=== PATIENT | male | born 1985 | race Caucasian/White ===

== ENCOUNTER 2020-01-05 14:34 | Outpatient (REF) | payer OTHER, SELFPAY | END 2020-01-05 14:35 | disposition home or self-care (01) | LOC: HO.LNP 14:34 | PROVIDERS: Visit Provider Hospitalist | DX: Z20.828 Contact with and (suspected) exposure to other viral communicable diseases (principal) | CPT/HCPCS: 87635 ==

== ENCOUNTER 2020-02-22 13:50 | Outpatient (REF) | payer OTHER, SELFPAY ==
[2020-02-22 17:11] LABS: Anion Gap 12 (12-20); Blood Urea Nitrogen 18 mg/dL (9-16); Calcium 9.3 mg/dL (8.4-10.2); Carbon Dioxide 25 mmol/L (22-29); Chloride 103 mmol/L (96-108); Cholesterol 138 mg/dL; Estimated Glomerular Filt Rate > 60; Glucose Fasting 84 mg/dL (60-99); HDL Cholesterol 32 mg/dL; LDL Cholesterol Calculated 84 mg/dl; Potassium 4.4 mmol/l (3.3-5.1); Sodium 136 mmol/L (135-145); Triglycerides 114 mg/dL
== END 2020-02-22 13:51 | disposition home or self-care (01) ==
LOC: HO.HMGCLDS 13:50
PROVIDERS: PCP Internal Medicine; Visit Provider Internal Medicine
DX: Z00.00 Encounter for general adult medical examination without abnormal findings (principal); I10 Essential (primary) hypertension
CPT/HCPCS: 80048; 80061

== ENCOUNTER 2020-04-13 17:01 | Outpatient (REF) | payer OTHER, SELFPAY | END 2020-04-13 17:02 | disposition home or self-care (01) | LOC: HO.LNP 17:01 | PROVIDERS: Hospitalist; Visit Provider Internal Medicine | DX: Z20.822 Contact with and (suspected) exposure to COVID-19 (principal) | CPT/HCPCS: U0003 ==

== ENCOUNTER 2020-05-15 09:43 | Emergency (ER) | payer OTHER, SELFPAY ==
[2020-05-15 11:52] VITALS: BP 119/72; PULSE 50; RESP 18; TEMP 36.8; O2SAT 100; BMI 30.7
--- NOTE | 2020-05-15 12:08 | ED.URI ---
HPI - URI/Sore Throat General Chief Complaint: General Medical Stated Complaint: sore throat Time Seen by Provider: 05/15/20 12:01 Source: patient Mode of arrival: ambulatory Limitations: no limitations History of Present Illness MD elicited complaint: cough and sore throat Pertinent past history: asthma Onset (ago): day(s) (1) Consistency: constant Severity: mild Description of mucous: clear Able to tolerate fluids by mouth: Yes Exacerbating factors: swallowing Relieving factors: nothing Context: sick contacts Associated symptoms: chills and myalgias Treatments prior to arrival: none Related Data Previous Rx's Medication Instructions Recorded omeprazole 20 mg capsule,delayed 20 mg PO DAILY #30 cap 03/25/20 release azithromycin 250 mg tablet 250 mg PO DAILY 5 Days #6 tab 04/13/20 albuterol sulfate 2 puff INHALATION QID PRN #6.7 g 05/15/20 Allergies Allergy/AdvReac Type Severity Reaction Status Date / Time No Known Allergies Allergy Verified 01/30/20 13:40 Review of Systems Review of Systems: Constitutional : No Weight loss, No Fever, pos Chills, No Fatigue, pos Malaise ENT/Mouth : pos sore throat, No Rhinorrhea Eyes: No Eye Pain, No Swelling, No Redness Cardiovascular : No Chest Pain, No SOB, No Dyspnea on Exertion, No Orthopnea, No Edema, No Palpitations Respiratory : No Cough, No Sputum, No Wheezing Gastrointestinal : No Nausea, No Vomiting, No Diarrhea, No Constipation, No abdominal Pain, No Hematochezia, No Melena Genitourinary : No Dysuria, No Urinary Frequency, No Hematuria, Musculoskeletal : No joint pain, pos Myalgias, No Joint Swelling Skin : No Skin Lesions, No rash PMFSH Past Medical History Attestation statement: The following information was validated with the patient. Medical History Cigarette smoker one half pack a day or less Heartburn Myopia Surgical History H/O left knee surgery History of appendectomy Family History Family History (Updated 01/30/20 @ 13:31 by Elva Vicente CMA) Father Diabetes mellitus Hypertension Heart enlargement Mother Diabetes mellitus Hypertension Social History Social History Alcohol intake: never Smoking Status: Current every day smoker Cigarettes Per Day: 10 Use of substances other than those prescribed or required for medical reasons: No Advance Directives: No Advance Directives Information Provided: No Physical Exam Vital Signs: Vital Signs: Last Vital Signs Temp 98.3 F 05/15/20 11:52 Pulse 50 05/15/20 11:52 Resp 18 05/15/20 11:52 BP 119/72 05/15/20 11:52 Pulse Ox 100 05/15/20 11:52 Body Mass Index 30.7 Appearance: Alert. Oriented X3. No acute distress. Eyes: Pupils equal, round and reactive to light. ENT: Pharynx mild erythema no exudates no swelling Neck: Normal inspection. Neck supple. CVS: Normal heart rate and rhythm. Pulses normal. Respiratory: No respiratory distress. Breath sounds normal. Abdomen: Soft and nontender. Skin: Skin warm and dry. Normal skin color. Normal skin turgor. Extremities: No lower extremity edema. No calf ttp Neuro: Oriented X 3. No motor deficit. No sensory deficit. Course Course Course Narrative: results negative called patient MDM - URI/Sore Throat MDM Narrative Medical decision making narrative: 25 yo male with asthma here with clear lungs - no hypoxia c/o URI symptoms will obtain COVID swab and rapid strep significant other is here with similar symptoms, given precautions to return Lab Data Labs: Lab Results 05/15/20 Range/Units 12:46 Coronavirus (PCR) NEGATIVE (Negative) Influenza Type A (PCR) NEGATIVE (Negative) Influenza Type B (PCR) NEGATIVE (Negative) RSV RNA Qual (PCR) NEGATIVE (Negative) Discharge Plan Discharge Clinical Impression: Acute upper respiratory infection Patient Disposition: Home, Self-Care Instructions: Upper Respiratory Infection (ED) Additional Instructions: return to ED for any worsening symptoms or concerns I WILL CALL YOU WITH RESULTS AT HOME KEEP YOUR PHONE ON IF YOU BECOME SO SHORT OF BREATH YOU CANNOT WALK TO THE BATHROOM PLEASE RETURN Prescriptions: New albuterol sulfate 90 mcg/actuation HFA aerosol inhaler 2 puff inhalation QID PRN (Reason: shortness of breath or wheezing) Qty: 6.7 RF: 0 No Action omeprazole 20 mg capsule,delayed release(DR/EC) 20 mg PO DAILY Qty: 30 RF: 1 azithromycin [Zithromax] 250 mg tablet 250 mg PO DAILY 5 Days Qty: 6 RF: 0 Stand Alone Forms: Work/School Release Interventions: ED Discharge Assessment Last Done: 05/15/20 12:47 Discharge Date/Time: 05/15/20 12:55
[2020-05-15 14:23] LABS: Influenza A PCR NEGATIVE (Negative); Influenza B PCR NEGATIVE (Negative); Resp Syncy Virus RNA Qual PCR NEGATIVE (Negative); SARS COV2 PCR INHOUSE NEGATIVE (Negative)
== END 2020-05-15 12:55 | disposition home or self-care (01) ==
PROVIDERS: Emergency Provider Emergency Medicine; PCP Internal Medicine
DX: J06.9 Acute upper respiratory infection, unspecified (principal); J02.9 Acute pharyngitis, unspecified; R05 Cough; Z20.822 Contact with and (suspected) exposure to COVID-19; J45.909 Unspecified asthma, uncomplicated; F17.210 Nicotine dependence, cigarettes, uncomplicated; Z79.899 Other long term (current) drug therapy
CPT/HCPCS: 0241U; 36415; 87071; 87880; 99283

== ENCOUNTER 2020-05-17 06:47 | Emergency (ER) | payer OTHER, SELFPAY ==
--- NOTE | ~2020-05-17 | XR_ITS ---
EXAMINATION: XR CHEST CLINICAL INFORMATION: Dyspnea COMPARISON: None TECHNIQUE: AP portable view of the chest was obtained. FINDINGS: No significant abnormality is noted involving the heart, lungs, mediastinum, bony thorax or soft tissues. XR/XR chest 1V IMPRESSION: No acute disease.
[2020-05-17 07:03] VITALS: BP 171/80; PULSE 88; RESP 16; TEMP 36.8; O2SAT 99; BMI 30.7
--- NOTE | 2020-05-17 07:11 | ED_ITS ---
HPI - URI/Sore Throat General Chief Complaint: General Medical Stated Complaint: COVID SYMPTOMS Time Seen by Provider: 05/17/20 07:07 Source: patient and old records reviewed Mode of arrival: ambulatory Limitations: no limitations History of Present Illness HPI Narrative: 25 yo male with asthma just seen 2 days ago had negative strep and COVID at that time comes back with URI symptoms MD elicited complaint: cough, sore throat and rhinorrhea Pertinent past history: asthma Onset (ago): day(s) (4) Consistency: constant Severity: moderate Description of mucous: clear Able to tolerate fluids by mouth: Yes Exacerbating factors: nothing Relieving factors: nothing Context: sick contacts Associated symptoms: chills, headache, rhinorrhea, sore throat and cough Treatments prior to arrival: none Related Data Previous Rx's Medication Instructions Recorded omeprazole 20 mg capsule,delayed 20 mg PO DAILY #30 cap 03/25/20 release azithromycin 250 mg tablet 250 mg PO DAILY 5 Days #6 tab 04/13/20 albuterol sulfate 2 puff INHALATION QID PRN #6.7 g 05/15/20 Allergies Allergy/AdvReac Type Severity Reaction Status Date / Time No Known Allergies Allergy Verified 01/30/20 13:40 Review of Systems Review of Systems: Constitutional : no Fever, positive Chills, positive fatigue, positive Malaise ENT/Mouth : positive sore throat, positive runny nose Eyes: No Discharge Cardiovascular : No Chest Pain, No SOB Respiratory : pos Cough, No Sputum Gastrointestinal : No Nausea, No Vomiting, No Diarrhea Genitourinary : No Dysuria, No Urinary Frequency Musculoskeletal : positive Myalgia Skin : No rash Neuro : pos Headache PMFSH Past Medical History Attestation statement: The following information was validated with the patient. Medical History Cigarette smoker one half pack a day or less Heartburn Myopia Surgical History H/O left knee surgery History of appendectomy Family History Family History (Updated 01/30/20 @ 13:31 by Elva Vicente CMA) Father Diabetes mellitus Hypertension Heart enlargement Mother Diabetes mellitus Hypertension Social History Social History Alcohol intake: never Smoking Status: Current some day smoker Cigarettes Per Day: 10 Use of substances other than those prescribed or required for medical reasons: No Advance Directives: Yes Advance Directives Information Provided: No Advance Directives on File: No Physical Exam 2 Vital Signs: Vital Signs: Last Vital Signs Temp 98.2 F 05/17/20 07:03 Pulse 88 05/17/20 07:03 Resp 16 05/17/20 07:03 BP 171/80 H 05/17/20 07:03 Pulse Ox 99 05/17/20 07:03 Body Mass Index 30.7 Appearance: Alert. Oriented X3. No acute distress. Eyes: Pupils equal, round and reactive to light. ENT: Pharynx normal. Neck: Normal inspection. Neck supple. CVS: Normal heart rate and rhythm. Pulses normal. Respiratory: No respiratory distress. Breath sounds normal. Abdomen: Soft and nontender. Skin: Skin warm and dry. Normal skin color. Normal skin turgor. Extremities: No lower extremity edema. No calf ttp Neuro: Oriented X 3. No motor deficit. No sensory deficit. Course Course Course Narrative: . MDM - URI/Sore Throat MDM Narrative Medical decision making narrative: 25 yo male not toxic, here with URI symptoms just tested negative for COVID 2 days ago - will repeat COVID test, clear lungs no hypoxia CXR ordered. Lab Data Labs: Lab Results 05/17/20 Range/Units 07:23 Coronavirus (PCR) NEGATIVE (Negative) Influenza Type A (PCR) NEGATIVE (Negative) Influenza Type B (PCR) NEGATIVE (Negative) RSV RNA Qual (PCR) NEGATIVE (Negative) Discharge Plan Discharge Clinical Impression: Upper respiratory tract infection Qualifiers: URI type: unspecified URI Qualified Code(s): J06.9 - Acute upper respiratory infection, unspecified Patient Disposition: Home, Self-Care Instructions: Viral Syndrome (ED) Additional Instructions: return to ED for any worsening symptoms or concerns your chest xray and COVID swab were negative you should still remain out of work if you are symptomatic Prescriptions: No Action omeprazole 20 mg capsule,delayed release(DR/EC) 20 mg PO DAILY Qty: 30 RF: 1 albuterol sulfate 90 mcg/actuation HFA aerosol inhaler 2 puff inhalation QID PRN (Reason: shortness of breath or wheezing) Qty: 6.7 RF: 0 azithromycin [Zithromax] 250 mg tablet 250 mg PO DAILY 5 Days Qty: 6 RF: 0 Print Language: Slovenian
[2020-05-17 08:12] LABS: Influenza A PCR NEGATIVE (Negative); Influenza B PCR NEGATIVE (Negative); Resp Syncy Virus RNA Qual PCR NEGATIVE (Negative); SARS COV2 PCR INHOUSE NEGATIVE (Negative)
[2020-05-17 08:58] VITALS: BP 132/73; PULSE 62; RESP 16; O2SAT 100
== END 2020-05-17 09:01 | disposition home or self-care (01) ==
PROVIDERS: Emergency Provider Emergency Medicine; PCP Internal Medicine
DX: J06.9 Acute upper respiratory infection, unspecified (principal); Z20.822 Contact with and (suspected) exposure to COVID-19; J02.9 Acute pharyngitis, unspecified; F17.210 Nicotine dependence, cigarettes, uncomplicated
CPT/HCPCS: 0241U; 36415; 71045; 99283; 99284

== ENCOUNTER 2020-05-21 06:48 | Emergency (ER) | payer OTHER, SELFPAY ==
[2020-05-21 08:23] VITALS: BP 125/71; PULSE 56; RESP 18; TEMP 36.4; O2SAT 98; BMI 30.7
--- NOTE | 2020-05-21 08:46 | ED.ASTHMA ---
HPI - Asthma General Chief Complaint: Asthma Stated Complaint: Asthma Time Seen by Provider: 05/21/20 08:00 Source: patient Mode of arrival: ambulatory Limitations: no limitations History of Present Illness HPI Narrative: 25-year-old male with a past medical history of asthma here with complaints of cough and shortness of breath since last evening. The patient tells me that he was seen here on May 15 and May 17 for similar symptoms and had 2 COVID test which were negative. He also had a chest x-ray which is unremarkable. He was provided with an albuterol inhaler to use every 4-6 hours as needed for cough or wheezing. Patient although he was doing well till last night when he had increased cough and some shortness of breath unrelieved with home albuterol. This morning he tells me that his breathing feels improved he still does have a dry occasional cough. No fevers, chills, chest pain, leg swelling or pain. The patient tells me he also has had increased anxiety and stress at work and in his home life. Denies suicidal or homicidal ideations. No depression. He is taking [id number] Benadryl to help with his anxiety. complaint: asthma attack Related Data Previous Rx's Medication Instructions Recorded omeprazole 20 mg capsule,delayed 20 mg PO DAILY #30 cap 03/25/20 release azithromycin 250 mg tablet 250 mg PO DAILY 5 Days #6 tab 04/13/20 albuterol sulfate 2 puff INHALATION QID PRN #6.7 g 05/15/20 prednisone 40 mg PO DAILY #10 tab 05/21/20 Allergies Allergy/AdvReac Type Severity Reaction Status Date / Time No Known Allergies Allergy Verified 01/30/20 13:40 Review of Systems Review of Systems: Yes all other systems are reviewed and are negative Constitutional: Constitutional: Reports no additional constitutional complaints, Denies body ache(s), Denies chills, Denies fever(s), Denies headache(s) and Denies weakness Eyes: Eyes: Reports no additional eye complaints and Denies change in vision ENT: Reports system reviewed and no additional complaints, except as documented, Denies dizziness, Denies headache(s), Denies nasal congestion, Denies nasal discharge and Denies neck pain Cardiovascular: Cardiovascular: Reports no additional cardiovascular complaints, Denies chest pain, Denies leg edema and Reports dyspnea Respiratory: Respiratory: Reports no additional respiratory complaints, Reports cough and Reports dyspnea Gastrointestinal: Gastrointestinal: Reports no additional gastrointestinal complaints, Denies abdominal pain, Denies diarrhea, Denies nausea and Denies vomiting Genitourinary: Genitourinary: Denies urinary incontinence Musculoskeletal: Musculoskeletal: Reports no additional musculoskeletal complaints, Denies back pain, Denies arthralgias, Denies joint swelling, Denies neck pain, Denies numbness and Denies tingling Integumentary/Breasts: Skin/Breast: Reports system reviewed and no additional complaints, except as docu and Denies rash Neurologic: Reports system reviewed and no additional complaints, except as documented, Denies Abnormal speech present, Denies dizziness, Denies headache(s), Denies numbness, Denies tingling and Denies weakness Psychiatric: Psychiatric: Reports anxiety, Denies depression, Denies homicidal ideation and Denies suicidal ideation [facility] Past Medical History Attestation statement: The following information was validated with the patient. Source: old records reviewed and nursing notes reviewed Medical History Cigarette smoker one half pack a day or less Heartburn Myopia Surgical History H/O left knee surgery History of appendectomy Family History Family History Father Diabetes mellitus Hypertension Heart enlargement Mother Diabetes mellitus Hypertension Social History Social History Alcohol intake: never Smoking Status: Current some day smoker Cigarettes Per Day: 10 Advance Directives: No Advance Directives Information Provided: No Physical Exam Vital Signs: Vital Signs: Last Vital Signs Temp 97.6 F 05/21/20 08:23 Pulse 56 05/21/20 08:23 Resp 18 05/21/20 08:23 BP 125/71 05/21/20 08:23 Pulse Ox 98 05/21/20 08:23 Body Mass Index 30.7 Const: General: cooperative, healthy appearing, comfortable and no acute distress Orientation/consciousness: patient oriented x3 Limitations: no limitations HENMT: Head: Yes normal to inspection Ears: hearing grossly normal bilaterally General nose exam: Normal external nose present Face and sinus: Yes normal facial exam Mouth: Normal oral and palatal mucosa present Throat: Yes posterior oropharynx normal Eyes: General: appearance normal, both eyes and all related structures Pupils: Equal, round and reactive pupils present Neck: Neck: Yes normal visual inspection Chest: Chest palpation & inspection: normal inspection of the chest Resp: Other: mild expiratory wheezing bases. clear upper airways Effort & Inspection: normal respiratory effort Cardio: Rate: regular rate Rhythm: regular rhythm Peripheral pulses: Peripheral pulses 2+ throughout GI: Inspection: Yes normal to inspection Palpation (GI): Soft to palpation and nontender Auscultation: normal bowel sounds Back/Spine/Pelvis: Thoracic/Lumbar Spine: thoracic and lumbar spine normal to inspection Skin: General skin exam: no rashes or lesions noted Neuro: General: patient oriented x3, no focal motor deficits and normal sensation to monofilament Cranial nerves: Yes Equal, round and reactive pupils present Cognition (Neuro): normal cognition Speech: No Abnormal speech present Gait exam (Neuro): Normal gait present Motor exam (neuro): 5/5 motor strength present throughout Extrem: General: Yes normal to inspection, Yes no pedal edema and Yes no calf tenderness Course Course Course Narrative: 25-year-old male with past medical history of asthma here with complaints of shortness of breath and cough since last evening. Unrelieved with home albuterol. On arrival the patient is well appearing, speaking full sentences, lying back resting comfortably. His lungs have a mild expiratory wheezing in the bases with clear in the upper airways. Normal saturations. Does not want additional COVID testing. No need for repeat CXR with no fever, normal saturations and lung sounds only show some exp wheezing which is very mild. He has a flat affect and does tell me he has increased anxiety at home and at work with stress. No depression or SI. I wonder if this is contributing to his symptoms at this time and we discussed this. Plan for brief course of steroids. We also discussed that he follow-up with his primary care doctor for additional management of his asthma as we do not do this from the emergency department. Reviewed worrisome signs/symptoms with patient and when to return to the ED. Comfortable with discharge home. [facility] - Asthma Medical Records Attestation: I reviewed the patient's medical records. Lab Data Attestation: I reviewed the patient's lab results. Discharge Plan Discharge Clinical Impression: Asthma with acute exacerbation Patient Disposition: Home, Self-Care Instructions: Asthma (ED) Additional Instructions: If you feel your asthma symptoms are not well controlled with your albuterol inhaler than you need to follow-up with your primary care doctor to be on a daily controller medication. You should also discuss your anxiety with them. This may be contributing to your symptoms Prescriptions: New prednisone 20 mg tablet 40 mg PO DAILY Qty: 10 RF: 0 No Action omeprazole 20 mg capsule,delayed release(DR/EC) 20 mg PO DAILY Qty: 30 RF: 1 albuterol sulfate 90 mcg/actuation HFA aerosol inhaler 2 puff inhalation QID PRN (Reason: shortness of breath or wheezing) Qty: 6.7 RF: 0 azithromycin [Zithromax] 250 mg tablet 250 mg PO DAILY 5 Days Qty: 6 RF: 0 Referrals: Ivy Vergara MD [Primary Care Provider] - 2 days Stand Alone Forms: Work/School Release Interventions: ED Discharge Assessment Last Done: 05/21/20 09:04 Discharge Date/Time: 05/21/20 09:07
== END 2020-05-21 09:07 | disposition home or self-care (01) ==
PROVIDERS: Emergency Provider Emergency Medicine; PCP Internal Medicine
DX: J45.901 Unspecified asthma with (acute) exacerbation (principal); F17.210 Nicotine dependence, cigarettes, uncomplicated; F41.9 Anxiety disorder, unspecified; Z79.899 Other long term (current) drug therapy
CPT/HCPCS: 99283

== ENCOUNTER 2020-10-07 19:01 | Emergency (ER) | payer OTHER, SELFPAY ==
--- NOTE | ~2020-10-07 | XR_ITS ---
EXAMINATION: XR CHEST CLINICAL INFORMATION: Shortness of breath COMPARISON: 05/17/2020 TECHNIQUE: 2 views of the chest were obtained. FINDINGS: No significant abnormality is noted involving the heart, lungs, mediastinum, bony thorax or soft tissues. XR/XR chest 2V IMPRESSION: Unremarkable examination.
[2020-10-07 19:06] VITALS: BP 116/88; PULSE 98; RESP 18; TEMP 37.1; O2SAT 97; BMI 30.7
--- NOTE | 2020-10-07 20:02 | ED.SOB ---
HPI - SOB/Dyspnea General Chief Complaint: Dyspnea Stated Complaint: Cough/Sob Time Seen by Provider: 10/07/20 19:41 Source: patient Mode of arrival: ambulatory Limitations: no limitations History of Present Illness HPI Narrative: 25 y/o male with history of asthma presenting with SOB and wheezing for the last 5 days. He reports generally not feeling well. He presents with his girlfriend who is also feeling unwell. He used his PRN albuterol inhaler when he started feeling sick but has not been using is consistently. He denies fever, chills, productive cough, N/V/D or abdominal pain. No chest pain. No known exposure to COVID. MD elicited complaint: shortness of breath and asthma attack Pertinent past history: asthma Onset (ago): day(s) (5) Timing: intermittent Severity: moderate Exacerbating factors: exertion and coughing Relieving factors: rest and bronchodilators Known history of: asthma Associated symptoms: cough and wheezing Treatment prior to arrival: none Related Data Home oxygen amount: none Previous Rx's Medication Instructions Recorded montelukast 10 mg tablet 10 mg PO QPM #30 tab 07/03/20 nicotine (polacrilex) 4 mg gum 4 mg BUCCAL Q2H #40 ea 07/20/20 omeprazole 20 mg capsule,delayed 20 mg PO DAILY #30 cap 09/19/20 release albuterol sulfate 1 inh INHALATION QID PRN #6.7 g 10/07/20 albuterol sulfate 90 mcg/actuation 2 puff INHALATION QID PRN #8.5 g 10/07/20 aerosol inhaler azithromycin [Zithromax Z-Christophe] See Rx Instructions .ROUTE 10/07/20 .COMPLEX #6 tab prednisone 40 mg PO DAILY 5 Days #10 tab 10/07/20 Allergies Allergy/AdvReac Type Severity Reaction Status Date / Time No Known Allergies Allergy Verified 06/14/20 14:31 Review of Systems Review of Systems: Constitutional: No Fever, No Chills ENT/Mouth: + sore throat, No Rhinorrhea, No Swallowing Difficulty Eyes: No Eye Pain, No Swelling, No Redness Cardiovascular: No Chest Pain, No SOB, No Orthopnea, No Edema Respiratory: + Cough, No Sputum, + Wheezing, No dyspnea Gastrointestinal: No Nausea, No Vomiting, No Diarrhea, No abdominal Pain Musculoskeletal: No joint pain, No Myalgias Skin: No Skin Lesions, No rash Neuro: No Dizziness, + Headache Heme/Lymph: No Bruising, No Lymphadenopathy PMFSH Past Medical History Attestation statement: The following information was validated with the patient. Medical History Cigarette smoker motivated to quit Cigarette smoker one half pack a day or less Heartburn Mild intermittent asthma Myopia Surgical History H/O left knee surgery History of appendectomy Family History Family History Father Diabetes mellitus Hypertension Heart enlargement Mother Diabetes mellitus Hypertension Social History Social History Alcohol intake: never Cigarettes Per Day: 10 Advance Directives: No Advance Directives Information Provided: No Physical Exam Vital Signs: Vital Signs: Last Vital Signs Temp 98.8 F 10/07/20 19:06 Pulse 74 10/07/20 20:21 Resp 18 10/07/20 19:06 BP 116/88 10/07/20 19:06 Pulse Ox 97 10/07/20 19:06 Body Mass Index 30.7 Appearance: Alert. Oriented X3. No acute distress. Eyes: Pupils equal, round and reactive to light. ENT: Pharynx normal. Neck: Normal inspection. Neck supple. CVS: Normal heart rate and rhythm. Pulses normal. Respiratory: No respiratory distress. Diffuse end expiratory wheezing throughout. Speaks in complete sentences. Skin: Skin warm and dry. Normal skin color. Normal skin turgor. No rashes. Extremities: No lower extremity edema. Neuro: Oriented X 3. No motor deficit. No sensory deficit. Course Course Course Narrative: 25 y/o male with history of asthma presenting with SOB, wheezing and cough. +sick contacts. Concern for COVID vs bronchitis vs CAP. VS are normal and he appears well. Wheezing on exam so will give prednisone and albuterol now and reassess. CXR and COVID swab ordered. Reevaluation(s) Reevaluation #1: CXR normal. COVID negative. Will treat for acute bronchitis and asthma exacerbation. Stable for d/c home with outpatient follow up. MDM - SOB/Dyspnea Lab Data Labs: Lab Results 10/07/20 Range/Units 19:42 COVID-19 (SHRUTI) Negative (Negative) COVID-19 Clin Com See Note Discharge Plan Discharge Clinical Impression: Asthma with exacerbation Qualifiers: Asthma severity: unspecified severity Asthma persistence: unspecified Qualified Code(s): J45.901 - Unspecified asthma with (acute) exacerbation Acute bronchitis Qualifiers: Bronchitis organism: unspecified organism Qualified Code(s): J20.9 - Acute bronchitis, unspecified Patient Disposition: Home, Self-Care Instructions: Asthma (ED), Acute Bronchitis (ED) Additional Instructions: Your COVID test was negative. Your chest x-ray was normal. Take the prescribed medications for bronchitis and asthma exacerbation. Start the prednisone tomorrow - you were given the 1st dose in the ER. Follow up with your doctor this week. If you develop new or worsening symptoms call 911 or come back to the ER for further evaluation. Prescriptions: New azithromycin [Zithromax Z-Christophe] 250 mg tablet See Rx Instructions .ROUTE .COMPLEX Qty: 6 RF: 0 prednisone 20 mg tablet 40 mg PO DAILY 5 Days Qty: 10 RF: 0 albuterol sulfate 90 mcg/actuation HFA aerosol inhaler 1 inh inhalation QID PRN (Reason: shortness of breath or wheezing) Qty: 6.7 RF: 0 No Action nicotine (polacrilex) 4 mg gum 4 mg buccal Q2H Qty: 40 RF: 0 omeprazole 20 mg capsule,delayed release(DR/EC) 20 mg PO DAILY Qty: 30 RF: 3 albuterol sulfate 90 mcg/actuation HFA aerosol inhaler 2 puff inhalation QID PRN (Reason: shortness of breath or wheezing) Qty: 8.5 RF: 2 montelukast 10 mg tablet 10 mg PO QPM Qty: 30 RF: 5
[2020-10-07 20:09] LABS: COVID-19 Test Negative (Negative); IDNOW Serial# 9DD0AD1C
[2020-10-07] MEDS: Albuterol Sulfate (0.083%) 2.5 MG/3 ML VIAL.NEB 5 MG INHALE (20:19)
[2020-10-07 20:21] VITALS: PULSE 74; O2SAT 96
[2020-10-07] MEDS: predniSONE 20 MG TABLET 60 MG PO (20:56)
== END 2020-10-07 20:40 | disposition home or self-care (01) ==
PROVIDERS: Physician Assistant; Emergency Provider Internal Medicine; PCP Internal Medicine
DX: J45.901 Unspecified asthma with (acute) exacerbation (principal); J20.9 Acute bronchitis, unspecified; R06.00 Dyspnea, unspecified; Z20.822 Contact with and (suspected) exposure to COVID-19; F17.210 Nicotine dependence, cigarettes, uncomplicated; Z71.6 Tobacco abuse counseling; Z79.899 Other long term (current) drug therapy
CPT/HCPCS: 36415; 71046; 87635; 94640; 94644; 99283

== ENCOUNTER 2021-03-27 13:53 | Outpatient (REF) | payer OTHER, SELFPAY ==
[2021-03-27 15:05] LABS: Binax Internal Control QC Valid; Binax Now Covid-19 Ag Negative (Negative)
== END 2021-03-27 13:54 | disposition home or self-care (01) ==
LOC: HO.HMGCLDS 13:53
PROVIDERS: Visit Provider Internal Medicine
DX: Z20.822 Contact with and (suspected) exposure to COVID-19 (principal)
CPT/HCPCS: 36415; C9803

== ENCOUNTER 2021-11-08 14:08 | Emergency (ER) | payer OTHER, SELFPAY ==
--- NOTE | ~2021-11-08 | XR_ITS ---
EXAMINATION: XR HAND, RIGHT CLINICAL INFORMATION: Finger pain COMPARISON: None TECHNIQUE: PA, lateral, and oblique views of the right hand. FINDINGS: Transverse fracture of the fifth metacarpal. There is dorsal angulation at the fracture apex. XR/XR hand RT min 3V IMPRESSION: Transverse fracture of the fifth metacarpal with dorsal angulation of the fracture apex.
[2021-11-08 14:51] VITALS: BP 121/66; PULSE 50; RESP 18; TEMP 36.7; O2SAT 99; BMI 27.8
--- NOTE | 2021-11-08 16:13 | ED.EXTPRO ---
HPI - Extremity Problem General Chief complaint: Extremity Injury, Upper Stated complaint: fall/hand swollen Time Seen by Provider: 11/08/21 16:13 Source: patient Mode of arrival: ambulatory Limitations: no limitations History of Present Illness HPI Narrative: Patient is a 26 year old male presenting to the emergency department today with right hand pain. Patient states that yesterday, he slipped and fell in his shower landing on his right hand. Patient states that he did not hit his head with the incident and had no loss of consciousness. Patient denies any dizziness, lightheadedness, abdominal pain, nausea, vomiting, fever, chills, blurry vision, double vision, loss of vision, chest pain, difficulty breathing, shortness of breath, back pain, night sweats, pain with urination, increased urinary frequency, increased urinary urgency, blood in his urine or stool, syncope or a near syncopal episode, bowel incontinence, bladder incontinence, bowel retention, bladder retention, or any other complaints at this time. MD Complaint: extremity pain Onset (ago): day(s) (1) Pain Consistency: constant Location: right and upper extremity Severity scale (1-10): 5 Quality: aching and dull Radiation: none Relieving factors: nothing Associated symptoms: denies other symptoms Related Data Previous Rx's Medication Instructions Recorded albuterol sulfate 90 mcg/actuation 1 inh inhalation QID PRN shortness 10/07/20 aerosol inhaler of breath or wheezing #6.7 grams albuterol sulfate 90 mcg/actuation 2 puff inhalation QID PRN 01/22/21 aerosol inhaler shortness of breath or wheezing #8.5 grams omeprazole 20 mg capsule,delayed 20 mg PO DAILY #30 caps 01/31/21 release montelukast 10 mg tablet 10 mg PO QPM #90 tabs 05/24/21 Allergies Allergy/AdvReac Type Severity Reaction Status Date / Time No Known Allergies Allergy Verified 09/26/21 09:49 Review of Systems Constitutional: Constitutional: Reports no additional constitutional complaints, Denies chills, Denies fever(s) and Denies night sweats Eyes: Eyes: Reports no additional eye complaints, Denies blurry vision, Denies change in vision, Denies diplopia, Denies eye discharge, Denies loss of vision and Denies eye pain ENT: Denies dizziness Cardiovascular: Cardiovascular: Reports no additional cardiovascular complaints, Denies chest pain, Denies lightheadedness, Denies Loss of Consciousness and Denies dyspnea Respiratory: Respiratory: Reports no additional respiratory complaints and Denies dyspnea Gastrointestinal: Gastrointestinal: Reports no additional gastrointestinal complaints, Denies abdominal pain, Denies melena, Denies hematochezia, Denies change in bowel habits and Denies change in stool character Genitourinary: Genitourinary: Reports no additional male genitourinary complaints, Denies hematuria, Denies oliguria, Denies difficulty urinating, Denies dysuria, Denies urinary frequency, Denies urinary hesitancy, Denies urinary incontinence and Denies urinary urgency Musculoskeletal: Musculoskeletal: Reports no additional musculoskeletal complaints, Denies numbness and Denies tingling Comments: right hand pain Neurologic: Denies dizziness, Denies loss of vision, Denies numbness and Denies tingling Psychiatric: Psychiatric: Reports no additional psychiatric complaints Endocrine: Endocrine: Reports no additional endocrine complaints Hematologic/Lymphatic: Hematologic/Lymphatic: Reports no additional hematologic/lymphatic complaints Allergic/Immunologic: Allergic/Immunologic: Reports no additional allergic/immunologic complaints [facility] Past Medical History Attestation statement: The following information was validated with the patient. Source: old records reviewed Medical History Cigarette smoker motivated to quit Cigarette smoker one half pack a day or less Family history of cardiomyopathy Heartburn Mild intermittent asthma Myopia Plantar callus Surgical History H/O left knee surgery History of appendectomy Family History Family History Father Diabetes mellitus Hypertension Heart enlargement Cardiomyopathy Mother Diabetes mellitus Hypertension Social History Social History Housing: House Alcohol intake: never Patient Tobacco Use Status: Current everyday Tobacco user Cigarettes Per Day: 10 e-Cigarette/Vaping Use: Never Used Advance Directives: No Advance Directives Information Provided: Yes service: No Current occupational status: employed Cognitive needs: No Hearing needs: No Vision needs: No Physical Exam Vital Signs: Vital Signs: Last Vital Signs Temp 98.1 F 11/08/21 14:51 Pulse 50 11/08/21 14:51 Resp 18 11/08/21 14:51 BP 121/66 11/08/21 14:51 Pulse Ox 99 11/08/21 14:51 O2 Del Method 11/08/21 14:51 BMI result Body Mass Index 27.8 Const: General: cooperative, no acute distress, alert and awake Nutritional Appearance: well nourished Orientation/consciousness: patient oriented x3 Limitations: no limitations HEENT: Head: Yes normal to inspection and Yes atraumatic Ears: hearing grossly normal bilaterally and external ears normal General nose exam: Normal external nose present, no nasal discharge noted and no epistaxis Face and sinus: Yes normal facial exam, No abrasion and No laceration Mouth: Normal oral and palatal mucosa present, no drooling and no muffled voice Eyes: General: appearance normal, both eyes and all related structures Periorbital: periorbital findings normal Eyelids: Yes eyelids normal Conjunctivae: conjunctivae normal Pupils: Equal, round and reactive pupils present EOM: EOMs intact bilaterally Neck: Neck: Yes normal visual inspection, Yes full ROM and Yes no lymphadenopathy Chest: Chest palpation & inspection: normal inspection of the chest Resp: Effort & Inspection: normal respiratory effort and able to speak in complete sentences Auscultation: clear to auscultation bilaterally Cardio: Rate: regular rate Rhythm: regular rhythm GI: Inspection: Yes normal to inspection Neuro: General: patient oriented x3 and moves all extremities Cranial nerves: Yes Equal, round and reactive pupils present Cognition (Neuro): normal cognition Motor exam (neuro): 5/5 motor strength present throughout Sensory Exam: Normal double simultaneous stimulation for sensation Coordination: [id number] test normal Extrem: Other: right hand swelling, pain with movement of the right hand General: Yes capillary refill normal Psych: Appearance: grossly normal Mental Status: mental status grossly normal Affect: normal affect Attitude: cooperative Thought process: Normal thought process present Thought content: Normal thought content present Insight: Good insight present (Psych) MDM - Extremity (Nontraumatic) MDM Narrative Medical decision making narrative: Patient is a 26 year old male presenting to the emergency department today with right hand pain. Patient's physical exam showed minimal swelling to the right hand with pain during ROM. Patient's right hand x-ray showed an acute 5th metacarpal with mild dorsal angulation. I explained my physical exam findings as well as all test results to the patient. I answered all questions asked by the patient. Patient's right hand was splinted in a ulnar gutter splint and a sling, without incident. Patient's PMS was intact prior to and after splinting. I stressed the importance of the patient taking his medication as prescribed. I stressed the importance of the patient following up with his primary care provider and an orthopedic provider. I stressed the importance of the patient returning to the emergency department immediately if his symptoms were to worsen or if he were to develop any dizziness, shortness of breath, difficulty breathing, chest pain, blurry vision, loss of vision, nausea, vomiting, abdominal pain, fever, chills, back pain, or any other complaints. Patient verbalized agreement and understanding with this treatment plan and discharge. Medical Records Attestation: I reviewed the patient's medical records. Imaging Data Right hand x-ray: Attestation: I personally reviewed and interpreted this imaging study as follows: My impression: 5th metacarpal fracture Radiologist's impression: EXAMINATION: XR HAND, RIGHT CLINICAL INFORMATION: Finger pain? COMPARISON: None? TECHNIQUE: PA, lateral, and oblique views of the right hand. FINDINGS: Transverse fracture of the fifth metacarpal. There is dorsal angulation at the fracture apex.? XR/XR hand RT min 3V IMPRESSION: Transverse fracture of the fifth metacarpal with dorsal angulation of the fracture apex. Dictated By: Curtis Cortez MD Signed By: Electronically signed by Curtis Cortez MD 11/08/21 1645 Procedures Orthopedic Splinting/Casting Injury #1: Side: right Upper Extremity Injury Location: hand Upper Extremity Immobilizer: sling/shoulder immobilizer (sling) and ulnar gutter Discharge Plan Discharge Clinical Impression: Fx metacarpal Patient Disposition: Home, Self-Care Instructions: Hand Fracture (ED) Additional Instructions: Follow up with your primary care provider and an orthopedic provider. Return to the emergency department immediately if your symptoms worsen or if you develop any dizziness, shortness of breath, difficulty breathing, chest pain, blurry vision, loss of vision, nausea, vomiting, abdominal pain, fever, chills, back pain, or any other complaints. Prescriptions: No Action albuterol sulfate 90 mcg/actuation HFA aerosol inhaler 2 puff inhalation QID PRN (Reason: shortness of breath or wheezing) Qty: 8.5 2RF omeprazole 20 mg capsule,delayed release(/EC) 20 mg PO DAILY Qty: 30 3RF montelukast 10 mg tablet 10 mg PO QPM Qty: 90 3RF albuterol sulfate 90 mcg/actuation HFA aerosol inhaler 1 inh inhalation QID PRN (Reason: shortness of breath or wheezing) Qty: 6.7 0RF Referrals: [facility] – [place], [place] [facility] [Provider Group] (Call to establish and follow up with an orthopedic provider. ) Ivy Vergraa MD [Primary Care Provider] - Stand Alone Forms: Work/School Release Print Language: Montserratian
== END 2021-11-08 17:27 | disposition home or self-care (01) ==
PROVIDERS: Emergency Provider Emergency Medicine; PCP Internal Medicine
DX: S62.306A Unspecified fracture of fifth metacarpal bone, right hand, initial encounter for closed fracture (principal); M79.644 Pain in right finger(s); F17.210 Nicotine dependence, cigarettes, uncomplicated; W18.2XXA Fall in (into) shower or empty bathtub, initial encounter; Y93.E1 Activity, personal bathing and showering; Y92.002 Bathroom of unspecified non-institutional (private) residence as the place of occurrence of the external cause; Y99.9 Unspecified external cause status; Z79.899 Other long term (current) drug therapy; Z71.6 Tobacco abuse counseling
CPT/HCPCS: 29130; 73130; 99282; 99284

== ENCOUNTER → 2021-11-12 12:30 | Outpatient (BNVA) | payer OTHER, SELFPAY | PROVIDERS: PCP Internal Medicine; Visit Provider Orthopaedic Surgery | DX: S62.326A Displaced fracture of shaft of fifth metacarpal bone, right hand, initial encounter for closed fracture (principal) | CPT/HCPCS: 99202 ==

== ENCOUNTER 2021-11-18 05:47 | Day surgery (SDC) | payer OTHER, SELFPAY ==
--- NOTE | ~2021-11-18 | FL_ITS ---
EXAMINATION: XR FLUOROSCOPY WITH IMAGES CLINICAL INFORMATION: Fracture. COMPARISON: Previous x-ray 11/08/2021. TECHNIQUE: Fluoroscopy performed by Dr. Milagro Tam. Fluoroscopy time: 9.76 seconds. Cumulative Dose: 0.3 mGy. DAP: 0.02 Gy-cm2. Images: 3. FINDINGS: Images demonstrate a pin or K-wire through the 5th metacarpal bone with anatomic alignment. FL/FL guidance in OR IMPRESSION: Fluoroscopy guidance for ORIF of right 5th metacarpal fracture.
[2021-11-18 06:21] VITALS: BP 122/66; PULSE 48; RESP 16; TEMP 36.3; O2SAT 99; BMI 27.1
[2021-11-18] MEDS: Lactated Ringers 1,000 ML 50 ML IVCONT (06:29)
--- NOTE | 2021-11-18 07:32 | HO.ANESPROP2 ---
HPI - Anesthesia Eval Consult details Narrative: 26 M for right fifth Metacarpal fracture closed reduction Asthma , Smoker PMFSH Active Problems Active Problems: All Active Problems (Updated 11/12/21 @ 16:49 by Milagro Tam MD) Closed fracture of shaft of fifth metacarpal bone of right hand (Acute) Plantar callus (Acute) Family history of cardiomyopathy (Acute) Sinus bradycardia by electrocardiography (Acute) Paresthesias (Acute) Cigarette smoker motivated to quit (Acute) Mild intermittent asthma (Acute) Encounter for screening laboratory testing for COVID-19 virus (Acute) Upper respiratory tract infection (Acute) Cigarette smoker one half pack a day or less (Acute) Myopia (Acute) Heartburn (Acute) Past Medical History Medical History Cigarette smoker motivated to quit Cigarette smoker one half pack a day or less Family history of cardiomyopathy Heartburn Mild intermittent asthma Myopia Plantar callus Family History Family History Father Diabetes mellitus Hypertension Heart enlargement Cardiomyopathy Mother Diabetes mellitus Hypertension Family history of problems with anesthesia: No Surgical History Surgical History H/O left knee surgery History of appendectomy History of Problems with Anesthesia: No Social History Social History (Updated 11/12/21 @ 13:06 by Heather Garcia [facility]) Housing: House Alcohol intake: never Patient Tobacco Use Status: Current everyday Tobacco user Tobacco use type: Cigarette Cigarette Packs Per Day: 1 Cigarettes Per Day: 20.0 e-Cigarette/Vaping Use: Never Used Use of substances other than those prescribed or required for medical reasons: Yes Substance Use Frequency: Occasionally Are you DNR?: No Advance Directives: No Advance Directives Information Provided: Yes service: No Current occupational status: employed Current occupation: rt hand/ tire repairmen Cognitive needs: No Hearing needs: No Vision needs: No Meds Allergies Allergy/AdvReac Type Severity Reaction Status Date / Time No Known Allergies Allergy Verified 11/12/21 12:58 Active Medications: Current Medications Albuterol Sulfate (Albuterol Sulfate (0.083%) 2.5 Mg/3 Ml Vial.Neb) 2.5 mg INHALE ONCE PRN PRN Reason: Shortness of Breath/Wheezing Lactated Ringer's (Lr) 1,000 mls @ 50 mls/hr IVCONT .Q20H [facility] Last Admin: 11/18/21 06:29 Dose: 50 mls/hr Lactated Ringer's (Lr) 1,000 mls @ 50 mls/hr IVCONT .Q20H [facility] Exam Exam Date and Time: November 18, 2021 0732 Height,Weight and Vital Signs: Height 5 ft 11 in Weight 88.451 kg Last Vital Signs Temp 97.4 F 11/18/21 06:21 Pulse 48 L 11/18/21 06:21 Resp 16 11/18/21 06:21 BP 122/66 11/18/21 06:21 Pulse Ox 99 11/18/21 06:21 O2 Del Method 11/18/21 06:21 Airway Mallampati Class: III TM Dist: >3cm Neck ROM: Full Loose/Missing/Broken Teeth: Yes (Braces ) Heart: S1,S2 Lungs: b/l breath sounds Assessment and Plan Assessment Anesthesia Assessment: Anesthesia Plan Discussed and Chart Reviewed Final Anesthetic Review Family History of Problems with Anesthesia: No History of Problems with Anesthesia: No NPO: Yes ASA Class: II Final Preanesthetic Review: Meds/Allgs Chart Reviewed, Consent Obtained/Reviewed and Anes Risks/Benef Reviewed Patient Risk: Intermediate Procedure Risk: Intermediate Anesthetic Plan Anesthetic Plan: GA Disposition: Standard PACU
--- NOTE | 2021-11-18 07:46 | MHC.SHP ---
Pre-Procedural Eval Section A Date of Service: 11/18/21 The patient is an INPATIENT: No Changes since office visit: No Cold of Flu in the past 2 weeks, No New Medical Problems, No Changes in Medication and No Patient answered all questions The History & Physical has been completed within 30 days and I have reviewed it.: Yes Section B Chief Complaint: Other fracture of fifth metacarpal bone, right troncoso Allergies: Allergies Allergy/AdvReac Type Severity Reaction Status Date / Time No Known Allergies Allergy Verified 11/12/21 12:58 Plan I have reviewed the history and physical and performed a pertinent physical examination on my patient. No changes have occurred unless specified.
--- NOTE | 2021-11-18 08:02 | P.OP_ITS ---
Operative Note Operative Note Date of Service: 11/18/21 Narrative: Operative Note Narrative: Preop diagnosis: 1. Right 5th Metacarpal shaft fracture Postop diagnosis: Same Procedure: 1. right 5th Metacarpal fracture closed reduction percutaneous pinning 2. Ulnar nerve block Surgeon: Milagro Tam MD Anesthesia: General Anesthesia Findings: Metacarpal fracture Implants: 0.054 K-wire x1 Tourniquet time: None EBL: Minimal Specimen: None Drains: None Complications: None Disposition: Brought to the recovery room in stable condition Plan: Follow-up in 10-14 days for a wound check, postop radiographs and for placement in a short-arm cast or splint Anticipate K-wire removal in 4-5 weeks based on interval bony healing Educate the patient that full fracture healing anticipated in approximately 8-12 weeks. Indications: The patient is 26 years old with right 5th metacarpal shaft fracture . The risks and benefits of operative treatment, including but not limited to risk of damage to blood vessels, nerves, tendons, infection, recurr ence, delayed or nonunion of fracture, persistent pain or numbness, incomplete resolution of preoperative symptoms, or need for further surgery were discussed with the patient and they wished to proceed with surgery. Procedure: Once consent was obtained patient was brought back to the operating suite and placed in the operating table in a supine position. . Perioperative antibiotics and general anesthesia was administered by the anesthesia team. A tourniquet was applied to the proximal aspect of the right upper extremity and the limb was prepped and draped in a standard surgical fashion. Tourniquet was not inflated during the case. The FluoroScan was used during the case to assist with our fracture reduction and placement of all implants. A closed reduction was performed on the nikki mora's right 5th metacarpal shaft fracture. I placed a single 0.054 K-wire retrograde through the head of the right 5th metacarpal extending proximally across the fracture site to the base of the metacarpal. Fracture alignment was assessed for both angular and rotational malalignment. Once satisfied with our fracture reduction and implant placement, the K-wires were bent and cut short and pin caps applied. Final fluoroscopic images were then obtained. The wounds were copiously irrigated with normal saline. An ulnar nerve block was then performed by infiltrating about the ulnar nerve at the wrist with some 0.5% plain ropivacaine for postop pain control. A Sterile dressing and short volar splint was applied. The patient appears to have tolerated the procedure well and with no complications. All digits were well vascularized at the conclusion of the case.
[2021-11-18 08:51] VITALS: BP 108/68; PULSE 59; RESP 15; TEMP 36.1; O2SAT 100
[2021-11-18 08:56] VITALS: BP 121/61; PULSE 59; RESP 16; O2SAT 100
[2021-11-18 09:01] VITALS: BP 128/78; PULSE 51; RESP 14; O2SAT 99
[2021-11-18 09:06] VITALS: BP 126/73; PULSE 46; RESP 16; TEMP 36.1; O2SAT 100
== END 2021-11-18 09:59 | disposition home or self-care (01) ==
PROVIDERS: PCP Internal Medicine; Visit Provider Orthopaedic Surgery
PROC: (CPT 26615; principal; 2021-11-18 07:30)
DX: S62.326A Displaced fracture of shaft of fifth metacarpal bone, right hand, initial encounter for closed fracture (principal); W18.2XXA Fall in (into) shower or empty bathtub, initial encounter; Y93.E1 Activity, personal bathing and showering; Y92.002 Bathroom of unspecified non-institutional (private) residence as the place of occurrence of the external cause; Y99.8 Other external cause status; J45.20 Mild intermittent asthma, uncomplicated; H52.10 Myopia, unspecified eye; R12 Heartburn; F17.210 Nicotine dependence, cigarettes, uncomplicated; Z79.899 Other long term (current) drug therapy
CPT/HCPCS: 26608; J0690; J1100; J1170; J2250; J2405; J2795; J3010

== ENCOUNTER 2021-12-03 09:04 | Outpatient (REF) | payer OTHER, SELFPAY ==
--- NOTE | ~2021-12-03 | XR_ITS ---
EXAMINATION: XR HAND, RIGHT CLINICAL INFORMATION: Right hand pain. COMPARISON: Right hand radiographs dated 11/08/2021. TECHNIQUE: PA, lateral, and oblique views of the right hand. FINDINGS: Orthopedic pin across the previously seen 5th metacarpal fracture which is in anatomic alignment. Mild new bone/callus formation. No hardware fracture. No perihardware lucency to suggest loosening or infection. No concerning lytic or blastic osseous lesion. XR/XR hand RT min 3V IMPRESSION: Fifth metacarpal fracture with improved anatomic alignment. Associated orthopedic pin without evidence of hardware complication. Mild new bone/callus formation.
== END 2021-12-03 09:05 | disposition home or self-care (01) ==
LOC: HO.HOSX 09:04
PROVIDERS: Visit Provider Orthopaedic Surgery
DX: M79.641 Pain in right hand (principal)
CPT/HCPCS: 73130

== ENCOUNTER 2021-12-11 10:54 | Outpatient (REF) | payer OTHER, SELFPAY ==
--- NOTE | ~2021-12-11 | XR_ITS ---
EXAMINATION: XR HAND, RIGHT CLINICAL INFORMATION: Right hand pain. COMPARISON: Most recent right hand radiographs dated 12/03/2021. TECHNIQUE: PA, lateral, and oblique views of the right hand. FINDINGS: Redemonstration of an orthopedic wire through the 5th metacarpal fracture in unchanged anatomic alignment with minimal increase in new bone/callus formation. No evidence of hardware complication. XR/XR hand RT min 3V IMPRESSION: Fifth metacarpal fracture in unchanged anatomic alignment with minimal new bone/callus formation. Orthopedic wire without evidence of complication.
== END 2021-12-11 10:55 | disposition home or self-care (01) ==
LOC: HO.HOSX 10:54
PROVIDERS: Visit Provider Orthopaedic Surgery
DX: M79.641 Pain in right hand (principal)
CPT/HCPCS: 73130

== ENCOUNTER 2022-01-01 | Outpatient (REF) | payer OTHER, SELFPAY ==
--- NOTE | ~2022-01-01 | XR_ITS ---
EXAMINATION: XR HAND, RIGHT CLINICAL INFORMATION: M79.641 - Pain in right hand COMPARISON: Radiographs right hand 12/11/2021, 12/03/2021, 11/08/2021 TECHNIQUE: PA, lateral, and oblique views of the right hand. FINDINGS: There is a transverse fracture mid fifth metacarpal shaft. The orthopedic wire has been removed since prior exam 12/11/2021. There is near-anatomic alignment. Callus bridges the fracture site on the lateral and palmar aspects. The fracture line is still clearly visible. No new bony abnormality. XR/XR hand RT min 3V IMPRESSION: -Healing fracture midshaft right fifth metacarpal. Callus bridging site on lateral and palmar sides. -Near-anatomic alignment. Fracture line still clearly visible.
== END 2022-01-01 00:01 | disposition home or self-care (01) ==
LOC: HO.HOSX
PROVIDERS: Visit Provider Physician Assistant
DX: M79.641 Pain in right hand (principal); S62.656D Nondisplaced fracture of middle phalanx of right little finger, subsequent encounter for fracture with routine healing; X58.XXXD Exposure to other specified factors, subsequent encounter
CPT/HCPCS: 73130

== ENCOUNTER → 2022-02-03 14:47 | Outpatient (BNVA) | payer OTHER, SELFPAY | PROVIDERS: PCP Internal Medicine; Referring Provider Internal Medicine; Visit Provider Internal Medicine Cardiovascular Disease | DX: R00.1 Bradycardia, unspecified (principal); Z82.49 Family history of ischemic heart disease and other diseases of the circulatory system | CPT/HCPCS: 99202 ==

== ENCOUNTER 2022-02-12 | Outpatient (REF) | payer OTHER, SELFPAY ==
--- NOTE | ~2022-02-12 | XR_ITS ---
EXAMINATION: XR HAND, RIGHT CLINICAL INFORMATION: Pain in right hand. COMPARISON: Right hand 01/01/2022 TECHNIQUE: PA, lateral, and oblique views of the right hand. FINDINGS: There is a healing fracture mid shaft right fifth metacarpal. No visible acute fracture or dislocation seen. The PIP and DIP joint spaces are maintained normal. The soft tissues are normal. XR/XR hand RT min 3V IMPRESSION: Healing fracture mid shaft right fifth metacarpal. No visible acute fracture or dislocation seen.
== END 2022-02-12 00:01 | disposition home or self-care (01) ==
LOC: HO.HOSX
PROVIDERS: Visit Provider Orthopaedic Surgery
DX: M79.641 Pain in right hand (principal)
CPT/HCPCS: 73130

== ENCOUNTER 2022-03-10 17:01 | Outpatient (REF) | payer OTHER, SELFPAY ==
[2022-03-10 17:55] LABS: Influenza A PCR NEGATIVE (Negative); Influenza B PCR NEGATIVE (Negative); Resp Syncy Virus RNA Qual PCR NEGATIVE (Negative); SARS COV2 PCR INHOUSE NEGATIVE (Negative)
== END 2022-03-10 17:02 | disposition home or self-care (01) ==
LOC: HO.LNP 17:01
PROVIDERS: Visit Provider Internal Medicine
DX: Z20.822 Contact with and (suspected) exposure to COVID-19 (principal); R43.9 Unspecified disturbances of smell and taste
CPT/HCPCS: 0241U

== ENCOUNTER → 2022-04-11 08:22 | Outpatient (REF) | payer OTHER, SELFPAY ==
--- NOTE | 2022-04-11 08:31 | HM_ITS ---
Conclusion: 1.Patient was monitored for total period of 2 days 2. Baseline was normal sinus rhythm with average heart of 83 beats per minute 3. No significant pauses or bradycardia noted 4. Occasional PACs with total burden of 0.2% 5. No patient reported events MTDD
--- NOTE | 2022-04-11 08:31 | CA_ITS ---
Transthoracic Echocardiogram Patient (Last, First, Middle): Jhonatan Falcon, Gender: Male Date of : 01/16/1995 Age: 27 Procedure Date: 04/11/2022 Procedure Type: Transthoracic Echocardiogram Location: OP Height: 180.34 cm Weight: 77.11 kg BSA: 1.97 m2 Heart Rate: 52 bpm BP: 128 / 80 mmHg Conservation Enforcement Officer: Referring MD: Benjamin Dent MD Brake Reliner: Benjamin Dent MD Symptoms: Z82.49 - Family history of ischemic heart disease and other diseases of ... Study Quality: Adequate W contrast ECG Rhythm: Bradycardia Conclusions: - Normal study Findings Procedure Information Contrast agent, definity, is being given per protocol without apparent complications. Left Ventricle Normal left ventricular size, thickness, and systolic function. The visually estimated ejection fraction is between 60-65%. Diastolic function is normal for age. Right Ventricle Normal right ventricular cavity size and systolic function. Atria Both atria are normal in size. There is no evidence of interatrial shunt. Aortic Valve Normal aortic valve structure and function. There is no aortic valve stenosis. There is no aortic valve regurgitation. Mitral Valve Normal mitral valve structure and function. There is trace mitral valve regurgitation. There is no mitral valve stenosis. Pulmonic Valve The pulmonic valve is likely normal. Tricuspid Valve Normal tricuspid valve structure. There is trace tricuspid valve regurgitation. The right ventricular systolic pressure is normal. The right ventricular systolic pressure is 19 mmHg. Normal right atrial pressure. There is no evidence of pulmonary hypertension. Great Vessels All visible segments of the aorta are normal in size. The pulmonary artery was not well visualized. Venous The inferior vena cava is normal in size and collapses greater than 50% with inspiration. Pericardium/Pleural There is no evidence of pericardial effusion. Prior Study Comparison No prior study available for comparison. Measurements 2D Linear Measurements IVSd: 0.96 0.6-0.9/0.6-1.0 cm LVIDd: 4.77 3.9-5.3/4.2-5.9 cm LVIDd Index: 2.42 2.4-3.2/2.2-3.1 cm/m2 LVIDs: 3.21 2.0-3.6 cm LVPWd: 0.96 0.7-1.1 cm LA Diam: 3.90 2.7-3.8/3.0-4.0 cm LAIDs Index: 1.98 1.5-2.3 cm/m2 LV Mass: 199.08 67-162/88-224 g LV Mass Index: 101.06 43-95/49-115 g/m2 LVOT Diam: 2.00 3.0+(-)1.3 cm 2D Systolic Function EF 4C: 58.20 >55% EF 2C: 53.40 >55% Mitral Valve MV Pk E: 1.03 MV PK A: 0.61 MV Decel Time: 183.00 E/A: 1.70 E'Lateral: 14.30 E'Medial: 12.90 E/E' Med: 8.00 E/E' Lat: 7.20 PHT: 54.00 MVA PHT: 4.07 Decel [place]: 5.64 Aortic Valve AoV Pk Erik: 1.44 AoV Mn Erik: 0.94 AoV VTI: 0.36 AoV Pk Grad: 8.00 Aov Mn Grad: 4.00 WYATT Cont.VTI: 2.18 LVOT LVOT Pk Erik: 1.07 LVOT Mn Erik: 0.71 LVOT VTI: 0.25 LVOT Pk Grad: 5.00 LVOT Mn Grad: 2.00 LVOT Diam: 2.00 LVOT Area: 3.14 Diastolic Function MV Pk E: 1.03 MV Pk A: 0.61 E/A: 1.70 E'Medial: 12.90 E/E' Med: 8.00 E' Laterial: 14.30 E/E' Lat: 7.20 Right Ventricle TAPSE (mm): 28.70 TVS' Erik: 13.90 Tricuspid Valve TR Pk Erik: 2.02 TR Pk Grad: 16.00 RA Press: 3.00 RVSP: 19.00 Great Vessels Aorta Sinus of Valsalva: 2.40 2.0-3.5 cm Ao Asc: 2.70 2.1-3.4 cm Ao Arch: 2.30 Pulmonary Valve PV Pk Erik: 1.02 Peak PV Grad: 4.00 Updated in Other Vendor System with Status of Final Benjamin Dent MD electronically signed on 04/11/2022 1:28:02 PM with status of Final
== END ==
LOC: HO.CARD 08:22
PROVIDERS: PCP Internal Medicine; Visit Provider Internal Medicine Cardiovascular Disease
DX: R00.1 Bradycardia, unspecified (principal); Z82.49 Family history of ischemic heart disease and other diseases of the circulatory system
CPT/HCPCS: 93225; 93306; Q9957

== ENCOUNTER → 2022-04-14 08:46 | Outpatient (REF) | payer OTHER, SELFPAY ==
--- NOTE | 2022-04-14 08:49 | CA_ITS ---
Acquisition Time: 2022-04-14 09:21:41 Total Exercise Time: 00:10:30 Test Indications: BRADYCARDIA Medications: SEE CHART Protocol: MISTI Max HR: 176 BPM 90% of Pred: 195 BPM Max BP: 148/060 mmHG Max Work Load: 12.4 METS Exercise stress test with exercise 10 min 30 sec of Misti protocol, achieving 90% MPHR, 12.3 METs, with fatigue and request to stop, no anginal symptoms, without arrythmia, with normotensive and normal chronotropic response to exercise, without EKG changes of ischemia. Test reviewed with Dr Newton Referred By: Benjamin Dent Overread By: MIRTA LORENZO
== END ==
LOC: HO.CARD 08:46
PROVIDERS: PCP Internal Medicine; Visit Provider Internal Medicine Cardiovascular Disease
DX: R00.1 Bradycardia, unspecified (principal)
CPT/HCPCS: 93017

== ENCOUNTER → 2022-07-03 13:55 | Outpatient (BNVA) | payer OTHER, SELFPAY | PROVIDERS: PCP Internal Medicine; Referring Provider Internal Medicine; Visit Provider Nurse Practitioner Family | DX: R00.1 Bradycardia, unspecified (principal); Z82.49 Family history of ischemic heart disease and other diseases of the circulatory system | CPT/HCPCS: 93005; 99212 ==

== ENCOUNTER 2023-07-07 13:08 | Outpatient (AMB) | payer OTHER, SELFPAY ==
--- NOTE | 2023-07-07 13:21 | A.OFFVIS_ITS ---
Intake Vital Signs 07/07/23 13:22 Height 5 ft 11 in Weight 187 lb 6.287 oz BMI 26.1 BP 110/70 Blood Pressure Location Lt brachial Position Sitting Pulse 53 Intake Visit Reasons: 1 yr f/up Intake Note: 1 year follow-up with ekg feeling good Meter Attendant Required: No Certified Credit Counselor: Certified Credit Counselor Present Accompanied by: Other Relationship Allergies No Known Allergies Allergy (Verified 03/10/22 14:46) Medication List - Last Reconciled 07/07/23 by Benjamin Dent MD albuterol sulfate 90 mcg/actuation 2 puffs inhalation QID PRN HPI HPI Comments History of Present Illness Details Jhonatan comes for 1 year follow-up. He has no cardiac symptoms. He works in labor intensive job and has no issues. Denies any orthopnea, PND, leg edema, lightheadedness, syncope, palpitations. [facility] Medical History Cigarette smoker motivated to quit Cigarette smoker one half pack a day or less Family history of cardiomyopathy Heartburn Mild intermittent asthma Myopia Plantar callus Plantar warts Right arm fracture Surgical History H/O left knee surgery History of appendectomy Family History Father Diabetes mellitus Hypertension Heart enlargement Cardiomyopathy Mother Diabetes mellitus Hypertension Social History Housing: House Alcohol intake: former Patient Tobacco Use Status: Current everyday Tobacco user Tobacco use type: Cigarette Cigarette Packs Per Day: 1 Cigarettes Per Day: 20.0 e-Cigarette/Vaping Use: Never Used service: No Current occupational status: employed Current occupation: rt hand/ tire repairmen Cognitive needs: No Hearing needs: No Vision needs: No Review of Systems Const Denies chills, Denies fatigue, Denies fever(s), Denies frequent falls, Denies weakness, Denies weight gain and Denies weight loss ENT Denies dizziness Card Denies chest pain, Denies leg edema, Denies lightheadedness, Denies palpitations, Denies dyspnea, Denies dyspnea on exertion, Denies orthopnea and Denies other (loss of consciousness) Resp Denies cough, Denies dyspnea and Denies dyspnea on exertion GI Denies hematochezia and Denies change in stool character Musc Denies abnormal gait, Denies muscle weakness, Denies numbness, Denies radiating pain into limb and Denies tingling Neuro Denies abnormal gait, Denies dizziness, Denies frequent falls, Denies numbness, Denies tingling and Denies weakness Endo Denies fatigue and Denies palpitations Physical Exam Vital Signs: Last Vital Signs Pulse 53 07/07/23 13:22 BP 110/70 07/07/23 13:22 BMI result Body Mass Index 26.1 Const General: cooperative, healthy appearing, comfortable and no acute distress Orientation/consciousness: patient oriented x3 Neck Neck: Yes normal visual inspection and Yes no JVD Carotids: normal carotid upstroke Chest Chest palpation & inspection: normal inspection of the chest Resp Effort & Inspection: normal respiratory effort Auscultation: clear to auscultation bilaterally, no crackles, no rales, no rhonchi and no wheezes Cardio Jugular venous distension: no JVD Rate: regular rate Rhythm: regular rhythm Heart sounds: S1 normal heart sound present, S2 normal heart sound present, no murmurs and no rubs Neuro General: patient oriented x3 Extrem General: Yes normal to inspection, No no pedal edema and No calf tenderness Psych Appearance: grossly normal Mental Status: mental status grossly normal Speech and movement: Normal speech and movement present Office Procedures EKG Details: EKG shows sinus bradycardia with early repolarization otherwise normal EKG [id number], Complete Assessment & Plan Assessment & Plan (1) Family history of cardiomyopathy: Code(s): Z82.49 - Family history of ischemic heart disease and other diseases of the circulatory system Plan: Family history of cardiomyopathy in this young man without any significant symptoms. At this point time no further workup is indicated. Screening echocardiogram can be done at every 5 years to assess for the same. I discussed with him about the same. Also echocardiogram performed starts developing exertional intolerance such as exertional shortness of breath or fatigue. Thank you for allowing us to partake in his care. Will follow up if need be Coding Level of Care Code Est Pt Level 3 (17254) Diagnoses Family history of cardiomyopathy Z82.49 CPT Codes EKG - CPT: 28988-[id number], Complete ([id number])
[2023-07-07 13:22] VITALS: BP 110/70; PULSE 53; BMI 26.1
== END 2023-07-07 13:58 | disposition home or self-care (01) ==
PROVIDERS: Visit Provider Internal Medicine Cardiovascular Disease
DX: Z82.49 Family history of ischemic heart disease and other diseases of the circulatory system (principal)
CPT/HCPCS: 93010; 99213

== ENCOUNTER → 2023-07-07 13:08 | Outpatient (BNVA) | payer OTHER, SELFPAY | PROVIDERS: Visit Provider Internal Medicine Cardiovascular Disease | DX: R00.1 Bradycardia, unspecified (principal); Z82.49 Family history of ischemic heart disease and other diseases of the circulatory system | CPT/HCPCS: 93005; 99212 ==